=== PATIENT | female | born 2000 | race Caucasian/White ===

== ENCOUNTER 2024-04-05 11:28 | Inpatient (IN) | payer OTHER ==
[~2024-04-05] VITALS: Ht 162.6 cm; Wt 64.9 kg
[2024-04-05 12:21] LABS: HEMATOCRIT 45.4 % (36.0-47.0); MEAN CORPUSCULAR HEMOGLOBIN 32.2 pg (27.0-33.0); MEAN CORPUSCULAR VOLUME 97.4 fl (80.0-96.0); PLATELET COUNT, AUTOMATED 342 10^3/uL (150-450); RED BLOOD COUNT 4.66 10^6/uL (4.00-5.40); WHITE BLOOD COUNT 7.2 10^3/uL (4.0-10.0)
[2024-04-05 12:42] LABS: AMPHETAMINES LEVEL URINE NEGATIVE (NEGATIVE); BARBITURATES URINE NEGATIVE (NEGATIVE); BENZODIAZEPINES URINE NEGATIVE (NEGATIVE); CANNABINOIDS URINE NEGATIVE (NEGATIVE); COCAINE METABOLITE URINE NEGATIVE (NEGATIVE); ETHYL ALCOHOL (ETHANOL) < 0.003 % (0.000-0.010); METHADONE URINE NEGATIVE (NEGATIVE); OPIATES URINE NEGATIVE (NEGATIVE); PHENCYCLIDINE URINE NEGATIVE (NEGATIVE)
[2024-04-05 12:44] LABS: SALICYLATE LEVEL < 3.0 MG/DL (<30)
[2024-04-05 12:47] LABS: THYROID STIMULATING HORMONE 1.669 uIU/ML (0.55-4.78)
[2024-04-05 13:01] LABS: HCG, SERUM QUALITATIVE NEGATIVE (NEGATIVE)
[2024-04-05 13:17] LABS: ALBUMIN 4.3 G/DL (3.2-5.2); ALKALINE PHOSPHATASE 76 U/L (35-104); ALT/SGPT 38 U/L (7.0-40); AST/SGOT 25 U/L (<34); BILIRUBIN,DIRECT < 0.1 MG/DL (<0.4); BILIRUBIN,TOTAL 0.3 MG/DL (0.3-1.2); BLOOD UREA NITROGEN 10 MG/DL (9-23); CALCIUM LEVEL 9.4 MG/DL (8.5-10.1); CARBON DIOXIDE LEVEL 30 MMOL/L (20-31); CHLORIDE LEVEL 102 MMOL/L (98-107); CREATININE FOR GFR 0.58 MG/DL (0.55-1.30); GLOMERULAR FILTRATION RATE > 60.0 (>60); GLUCOSE, FASTING 91 MG/DL (60-100); POTASSIUM SERUM 3.9 MMOL/L (3.5-5.1); SODIUM LEVEL 140 MMOL/L (136-145); TOTAL PROTEIN 8.3 G/DL (5.7-8.2)
[2024-04-05] MEDS ORDERED: HOME MED LIST COMPLETE! XX SCH (14:00)
[2024-04-06] MEDS ORDERED: MOM 30ML SUSPENSION UDC PO PRN (07:55)
[2024-04-06] MEDS ORDERED: IBUPROFEN 400MG TAB PO PRN (07:55)
[2024-04-06] MEDS ORDERED: ACETAMINOPHEN 325 MG TAB PO PRN (07:55)
[2024-04-06] MEDS ORDERED: traZODone 50 MG TAB PO PRN (07:55)
[2024-04-06] MEDS ORDERED: MAALOX 30 ML SUSP *UDC PO PRN (07:55)
[2024-04-06] MEDS ORDERED: diphenhydrAMINE 25MG CAP PO PRN (07:55)
[2024-04-06 08:51] VITALS: BP 135/72; TEMP 97.6; O2SAT 100
[2024-04-06] MEDS: NICOTINE 14 MG/24 HR TRANSDERMAL TD SCH (09:00)
[2024-04-06 14:44] VITALS: BP 128/67; TEMP 98; O2SAT 98
[2024-04-07 06:11] VITALS: BP 151/65; TEMP 97.5; O2SAT 100
[2024-04-07 16:23] VITALS: BP 133/77; TEMP 97.7; O2SAT 95
[2024-04-08 06:32] VITALS: BP 140/65; TEMP 97.7; O2SAT 99
== END 2024-04-08 11:31 | disposition home or self-care (01) | DRG 882 ==
LOC: M ED 11:28 → EDBD 11:28 → M ED INP 04-06 08:22 → M PSY 04-06 08:59
PROVIDERS: ADMIT Psychiatry & Neurology Psychiatry; ATTEND Psychiatry & Neurology Psychiatry
DX: F43.23 Adjustment disorder with mixed anxiety and depressed mood (principal); R45.851 Suicidal ideations; F43.10 Post-traumatic stress disorder, unspecified; F10.10 Alcohol abuse, uncomplicated; Z63.5 Disruption of family by separation and divorce; Z91.414 Personal history of adult intimate partner abuse; Z91.410 Personal history of adult physical and sexual abuse; Z91.52 Personal history of nonsuicidal self-harm; Z62.810 Personal history of physical and sexual abuse in childhood; Z62.811 Personal history of psychological abuse in childhood

== ENCOUNTER → 2024-07-27 | Outpatient (CLI) | payer OTHER | LOC: M PLAIMG 07:27 | PROVIDERS: ATTEND Otolaryngology | DX: J32.0 Chronic maxillary sinusitis (principal) ==

== ENCOUNTER 2024-10-12 09:14 | Day surgery (SDC) | payer OTHER ==
[~2024-10-12] VITALS: Ht 162.6 cm; Wt 74.0 kg
[~2024-10-12 09:14] MED LIST: LIDOCAINE 2% 100 MG/5 ML SDV (FOR ANES.) As Ordered ONE; MIDAZOLAM INJ 2 MG/2 ML VIAL As Ordered ONE; ROCURONIUM BROMIDE 50MG/5ML VIAL As Ordered ONE
[2024-10-12] MEDS ORDERED: LR 1,000 ML IV SCH (09:20)
[2024-10-12] MEDS ORDERED: LACRILUBE (AKWA TEARS) OPHTH OINT 3.5 GM As Ordered ONE (10:31)
[2024-10-12] MEDS ORDERED: ACETAMINOPHEN 1000MG/100ML IV BAG As Ordered ONE (10:36)
[2024-10-12] MEDS ORDERED: ONDANSETRON 4MG 2ML VIAL As Ordered ONE (11:06)
[2024-10-12] MEDS ORDERED: dexAMETHasone 4 MG/ML 1 ML VIAL As Ordered ONE (11:06)
[2024-10-12] MEDS ORDERED: KETOROLAC 30 MG/ML 1 ML VIAL As Ordered ONE (11:06)
[2024-10-12] MEDS ORDERED: SUGAMMADEX SODIUM 500 MG/5 ML VIAL As Ordered ONE (11:09)
[2024-10-12] MEDS: TRANEXAMIC ACID 100 MG/ML 10ML VIAL As Ordered ONE (11:11)
[2024-10-12] MEDS: OXYMETAZOLINE 0.05% NASAL SPRAY As Ordered ONE (11:15)
[2024-10-12] MEDS: LIDOCAINE W/EPINEPHrine 1% 20 ML VIAL As Ordered ONE (11:15)
[2024-10-12] MEDS: METHYLENE BLUE 0.5% (5 MG/ML) 10 ML AMP As Ordered ONE (11:15)
[2024-10-12] MEDS ORDERED: ONDANSETRON 4MG 2ML VIAL IV PRN (11:35)
[2024-10-12 12:35] VITALS: BP 135/79; TEMP 97.7; O2SAT 100
== END 2024-10-12 12:45 | disposition home or self-care (01) ==
LOC: M SDC 09:14
PROVIDERS: ATTEND Otolaryngology
DX: J32.0 Chronic maxillary sinusitis (principal); J34.3 Hypertrophy of nasal turbinates
CPT/HCPCS: 30140; 31256; 61782; 81025; J0131; J1100; J1885; J2250; J2405; J2765; J3010; Q9968